=== PATIENT | female | born 2000 | race Caucasian/White ===

== ENCOUNTER 2021-12-12 18:25 | Emergency (ER) | payer SELFPAY ==
[~2021-12-12] VITALS: Ht 167.6 cm; Wt 59.0 kg
--- NOTE | 2021-12-12 18:31 | NUR ---
Patient BIBA to bed 6.
[2021-12-12 18:32] VITALS: BP 112/67
--- NOTE | 2021-12-12 19:09 | NUR ---
Patient discharged with v/s stable. Written and verbal after care instructions given. Patient verbalized understanding. Police with in custody. All questions addressed prior to discharge. Advised to follow up with PMD.
--- NOTE | 2021-12-12 19:09 | NUR ---
PATIENT [facility] POLICE DEPT. PATIENT EXAMINED BY DR. GAMINO. PATIENT MEDICALLY CLEARED AND RELEASED IN CUSTODY IN STABLE CONDITION. ORIGINAL PRE-BOOK FORM GIVEN TO OFFICER SEAN #[id number].
== END 2021-12-12 19:09 ==
LOC: EDBD 18:25 → MED 18:25
DX: R41.82 Altered mental status, unspecified (principal); Z02.89 Encounter for other administrative examinations
CPT/HCPCS: 99283